=== PATIENT | female | born 1995 | race Caucasian/White ===

== ENCOUNTER 2016-09-18 00:50 | Emergency (ER) | payer BC, OTHER ==
[~2016-09-18] VITALS: Ht 177.8 cm; Wt 51.8 kg
[2016-09-18 00:50] VITALS: TEMP 36.8; Ht 177.8 cm; Wt 51.8 kg
[2016-09-18 01:14] VITALS: O2SAT 97
[2016-09-18] MEDS ORDERED: BCPILLS PO (01:25)
[2016-09-18 01:30] LABS: BUN/CREATININE RATIO 13.9 (10-20); CALCIUM 8.3 mg/dl (8.5-10.1); CREATININE 0.69 mg/dl (0.60-1.20); POTASSIUM 3.4 mmol/L (3.5-5.1)
[2016-09-18 01:34] LABS: PREG INTERNAL NEGATIVE QC NEG CLEAR BACKGROUND; PREG INTERNAL POSITIVE QC POS CONTROL LINE
--- NOTE | 2016-09-18 01:39 | EMERGENCY ROOM VISIT NOTE ---
History Report prepared by Fly: Mariza Rhodes Under the Supervision of: Dr. Omar Villagran D.O. First contact with patient: 00:51 Chief Complaint: ALCOHOL OVERDOSE Stated Complaint: ALCOHOL OVERDOSE History of Present Illness The patient is a 21 year old female who presents to the Emergency Room with persistent alcohol intoxication starting [employer]. The patient was in the alley behind [address] vomiting. Her friends called EMS because she was vomiting. She has not vomited since EMS picked her up. She had been drinking all day. She denies any abdominal pain, fall, or injury. She is a student from [employer] who is visiting friends here. Her friends are on their way to the ED. She is on amoxicillin for oral surgery. She had scoliosis surgery 3 years ago. Source of History: patient, EMS Onset: [employer] Position: other (global) Quality: other (alcohol intoxication) Timing: other (persistent) Associated Symptoms: No abdominal pain Note: Pt denies falls, injury. Review of Systems See HPI for pertinent positives & negatives. A total of 10 systems reviewed and were otherwise negative. Past Medical & Surgical Medical Problems: (1) Scoliosis Family History No pertinent family history stated. Social History Occupation Status: student Current/Historical Medications Scheduled Control Pills ( Control Pills), 1 TAB PO DAILY Allergies Coded Allergies: No Known Allergies (Unverified , 09/18/16) Physical Exam Vital Signs Date Time Temp Pulse Resp B/P (MAP) Pulse Ox O2 Delivery O2 Flow Rate FiO2 09/18/16 06:10 111 16 96/49 98 Room Air 09/18/16 05:00 95 18 91/46 97 Room Air 09/18/16 04:26 109 09/18/16 04:00 113 18 106/58 98 Room Air 09/18/16 03:02 93 18 107/65 97 Room Air 09/18/16 02:00 92 18 126/88 98 Room Air 09/18/16 01:33 90 22 118/76 99 Room Air 09/18/16 01:14 97 Room Air 09/18/16 01:05 109 09/18/16 00:50 36.8 133 22 139/85 98 Room Air 09/18/16 00:50 98 Room Air Physical Exam GENERAL: Patient is awake and anxious appearing, appears tearful. EYES: Bilateral conjunctival injection noted. The pupils are equal, round, and reactive to light. EARS, NOSE, MOUTH AND THROAT: The nose is without any evidence of any deformity. Mucous membranes are moist tongue is midline NECK: The neck is nontender and supple. RESPIRATORY: Normal respiratory effort is noted there is no evidence of wheezing rhonchi or rales CARDIOVASCULAR: Tachycardic rate, but regular rhythm noted, no definite murmurs noted to auscultation. GASTROINTESTINAL: The abdomen is soft. Bowel sounds are present in all quadrants. Abdomen is nontender MUSCULOSKELETAL/EXTREMITIES: There is no evidence of gross deformity full range of motion is noted in the hips and shoulders SKIN: There is no obvious evidence of any rash. There are no petechiae, pallor or cyanosis noted. NEUROLOGIC: GCS of 15, speech was somewhat slurred. Medical Decision & Procedures Laboratory Results 09/18/16 01:00 Test 09/18/16 01:00 Anion Gap 8.0 mmol/L (3-11) Est Creatinine Clear Calc Drug Dose 104.6 ml/min Estimated GFR () 143.2 Estimated GFR (Non- 123.6 BUN/Creatinine Ratio 13.9 (10-20) Calcium Level 8.3 mg/dl (8.5-10.1) Human Chorionic Gonadotropin, Qual NEG (NEG) Ethyl Alcohol mg/dL 292.0 mg/dl (0-3) Laboratory results per my review. ED Course 0054: The patient was evaluated in room A4B. A complete history and physical examination were performed. 0615: Upon reevaluation, the patient is resting comfortably. I discussed the results and treatment plan with her. She verbalized agreement of the treatment plan. She was discharged home. Medical Decision Prior records/ancillary studies reviewed. Triage Nursing notes reviewed. Additional history obtained from EMS. The patient's history was concerning for altered mental status and a possible alcohol overdose. Differential diagnosis: Etiologies such as alcohol intoxication, toxicologic, infection, hypoglycemia, electrolyte abnormalities, cardiac sources, intracerebral event, neurologic, as well as others were entertained. Medication Reconciliation: I attest that I have personally reviewed the patient' s current medications list. Blood pressure screening: Patient was found to have normal blood pressure on screening and does not require follow-up. The patient is a 21-year-old female who presented to the emergency department for an evaluation of suspected alcohol intoxication. The patient admitted to drink alcohol this evening there is no history of trauma. The patient was found have a very elevated alcohol level in the emergency department. She was placed on the irrigator overhead. She was evaluated multiple times. On subsequent reevaluation she was significantly improved and much less clinically intoxicated. The patient was released to a family member. She was encouraged to avoid any further alcoholic beverages. She was advised to avoid operating any heavy machinery including driving a vehicle for the next 24 hours. She was also advised to return to the emergency department immediately if symptoms change worsen or the need arises. She was instructed to drink plenty clear liquids. Impression Primary Impression: Alcohol intoxication Scribe Attestation The scribe's documentation has been prepared under my direction and personally reviewed by me in its entirety. I confirm that the note above accurately reflects all work, treatment, procedures, and medical decision making performed by me. Departure Information Dispostion Home / Self-Care Referrals No Doctor, Assigned (PCP) Forms HOME CARE DOCUMENTATION FORM, IMPORTANT VISIT INFORMATION Patient Instructions ED Alcohol Intoxication, My [facility] Additional Instructions Drink plenty clear liquids. Rest and avoid any strenuous activity. Avoid any further alcoholic beverages. Avoid operating any heavy machinery including driving a vehicle for the next 24 hours. Problem Qualifiers Primary Impression: Alcohol intoxication Complication of substance-induced condition: uncomplicated Qualified Codes: F10.920 - Alcohol use, unspecified with intoxication, uncomplicated
[2016-09-18 06:10] VITALS: BP 96/49; PULSE 111; O2SAT 98
== END 2016-09-18 06:30 | disposition home or self-care (01) ==
LOC: C.EDA 00:52
DX: F10.920 Alcohol use, unspecified with intoxication, uncomplicated (principal); Y90.8 Blood alcohol level of 240 mg/100 ml or more; Z79.3 Long term (current) use of hormonal contraceptives